=== PATIENT | male | born 1955 | race Hispanic/Latino ===

== ENCOUNTER 2016-06-16 15:36 | Emergency (ER) | payer MEDICARE ==
[2016-06-16 17:09] LABS: BUN/Creatinine Ratio 13.07; Calcium 9.1 mg/dL (8.4-10.2); Chloride 101.9 mmol/L (98-107); Potassium 3.7 mmol/L (3.6-5.0)
[2016-06-16 17:29] LABS: Basophils % (Auto) 0.8 % (0.0-1.8); Eosinophils % (Auto) 2.6 % (0.0-4.3); Hemoglobin 13.2 gm/dl (11.8-15.2); Mean Corpuscular HGB Conc 34 % (32-34); Mean Corpuscular Hemoglobin 30 pg (28-32); Mean Corpuscular Volume 89 fl (84-94); Platelet Count 180 K/mm3 (140-440); Red Cell Distribution Width 13.3 % (13.2-15.2)
--- NOTE | 2016-06-16 21:39 | Emergency Department Report ---
HPI - General Chief Complaint: Altered Mental Status Time Seen by Provider: 06/16/16 21:25 - HPI HPI: Room 5 The patient is a 60-year-old male presenting with a chief complaint of schizophrenia. When asked what made him come to the emergency department patient states "some nurse" the lives [place] an apartment complex told him he needed to come. The patient states he wanted to go to review was to "get some rest." The patient admits to suicidal ideation for one year with is less thought of suicidal ideation occurred approximately 1 month ago. Patient denies suicidal ideation currently. Patient admits to auditory hallucinations stating he has voices "same stuff to me." The patient states he is unable to make out what the voices are saying. The patient admits to visual hallucinations stating he is seen "faces." Patient denies homicidal ideation. 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) Hx Psychiatric Treatment: Yes (schizophrenia) - Surgical History Past Surgical History?: No - Family History Family history: no significant - Social History Smoking Status: Current Every Day Smoker (one pack per day) Substance Use Type: None (denies illicit drug use), Alcohol (occasional) - Medications Home Medications: Home Medications Medication Instructions Recorded Confirmed Last Taken Type Aspirin [Aspirin TAB] 325 mg PO QDAY #30 tablet 01/01/16 01/06/16 Unknown Rx Pravastatin Sodium [Pravastatin] 10 mg PO QHS #30 tablet 01/01/16 01/06/16 Unknown Rx hydrALAZINE [Apresoline TAB] 25 mg PO BID #60 tablet 01/01/16 01/06/16 Unknown Rx Benztropine [Cogentin] 0.5 mg PO QHS #30 tablet 01/10/16 Unknown Rx risperiDONE [RisperDAL] 1 mg PO QHS #30 tablet 01/10/16 Unknown Rx ED Review of Systems ROS: Stated complaint: ALTERED MENTAL STATUS Other details as noted in HPI Comment: All other systems reviewed and negative Constitutional: malaise. denies: chills, fever Eyes: denies: eye pain, eye discharge, vision change ENT: denies: ear pain, throat pain Respiratory: denies: cough, shortness of breath, wheezing Cardiovascular: denies: chest pain, palpitations Endocrine: no symptoms reported Gastrointestinal: denies: abdominal pain, nausea, diarrhea Genitourinary: denies: urgency, dysuria Musculoskeletal: denies: back pain, joint swelling, arthralgia Skin: denies: rash, lesions Neurological: denies: headache, weakness, paresthesias Psychiatric: auditory hallucinations, visual hallucinations, suicidal thoughts. denies: homicidal thoughts Hematological/Lymphatic: denies: easy bleeding, easy bruising Physical Exam - Physical Exam Vital Signs: Vital Signs 06/16/16 15:44 Temperature 98 F Pulse Rate 94 H Respiratory 20 Rate Blood Pressure 201/117 O2 Sat by Pulse 96 Oximetry Physical Exam: GENERAL: The patient is well-developed well-nourished male lying on stretcher not appear to be in acute distress. [] HEENT: Normocephalic. Atraumatic. Extraocular motions are intact. Patient has moist mucous membranes. NECK: Supple. Trachea midline CHEST/LUNGS: Clear to auscultation. There is no respiratory distress noted. HEART/CARDIOVASCULAR: Regular. There is no tachycardia. There is no gallop rub or murmur. ABDOMEN: Abdomen is soft, nontender. Patient has normal bowel sounds. There is no abdominal distention. SKIN: There is no rash. There is no edema. There is no diaphoresis. NEURO: The patient is awake, alert, and oriented. The patient is cooperative. Residual right-sided weakness. The patient has normal speech and gait. MUSCULOSKELETAL: There is no evidence of acute injury. ED Course Vital Signs 06/16/16 15:44 Temperature 98 F Pulse Rate 94 H Respiratory 20 Rate Blood Pressure 201/117 O2 Sat by Pulse 96 Oximetry - Consultations Consultation #1: 06/16/16 22:39 Case discussed with mental health internal control consultant. Will have psychiatrists evaluated patient in the morning will obtain social work consult regarding patient's homelessness as well ED Medical Decision Making - Lab Data Result diagrams: 06/16/16 16:39 06/16/16 16:39 Laboratory Tests 06/16/16 06/16/16 06/16/16 16:39 16:39 16:39 WBC 7.0 RBC 4.40 Hgb 13.2 Hct 39.0 MCV 89 MCH 30 MCHC 34 RDW 13.3 Plt Count 180 Lymph % (Auto) 27.4 [place] % (Auto) 9.8 H Eos % (Auto) 2.6 Baso % (Auto) 0.8 Lymph # 1.9 [place] # 0.7 Eos # 0.2 Baso # 0.1 Seg Neutrophils % 59.4 Seg Neutrophils # 4.1 Sodium 141 Potassium 3.7 Chloride 101.9 Carbon Dioxide 27 Anion Gap 16 BUN 17 Creatinine 1.3 Estimated GFR 57 BUN/Creatinine Ratio 13.07 Glucose 120 H Calcium 9.1 Urine Color Urine Turbidity Urine pH Ur Specific [place] Urine Protein Urine Glucose (UA) Urine Ketones Urine Blood Urine Nitrite Urine Bilirubin Urine Urobilinogen Ur Leukocyte Esterase Urine WBC (Auto) Urine RBC (Auto) Urine Mucus Urine Opiates Screen Urine Methadone Screen Ur Barbiturates Screen Ur Phencyclidine Scrn Ur Amphetamines Screen U Benzodiazepines Scrn Urine Cocaine Screen U Marijuana (THC) Screen Drugs of Abuse Note Plasma/Serum Alcohol < 0.01 06/16/16 06/16/16 21:48 21:48 WBC RBC Hgb Hct MCV MCH MCHC RDW Plt Count Lymph % (Auto) [place] % (Auto) Eos % (Auto) Baso % (Auto) Lymph # [place] # Eos # Baso # Seg Neutrophils % Seg Neutrophils # Sodium Potassium Chloride Carbon Dioxide Anion Gap BUN Creatinine Estimated GFR BUN/Creatinine Ratio Glucose Calcium Urine Color Yellow Urine Turbidity Clear Urine pH 6.0 Ur Specific [place] 1.023 Urine Protein <15 mg/dl Urine Glucose (UA) Neg Urine Ketones Neg Urine Blood Neg Urine Nitrite Neg Urine Bilirubin Neg Urine Urobilinogen 2.0 Ur Leukocyte Esterase Neg Urine WBC (Auto) < 1.0 Urine RBC (Auto) 2.0 Urine Mucus Few Urine Opiates Screen Presumptive negative Urine Methadone Screen Presumptive negative Ur Barbiturates Screen Presumptive negative Ur Phencyclidine Scrn Presumptive negative Ur Amphetamines Screen Presumptive negative U Benzodiazepines Scrn Presumptive negative Urine Cocaine Screen Presumptive negative U Marijuana (THC) Screen Presumptive negative Drugs of Abuse Note Disclamer Plasma/Serum Alcohol - Differential Diagnosis schizophrenia Critical care attestation.: If time is entered above; I have spent that time in minutes in the direct care of this critically ill patient, excluding procedure time. ED Disposition Clinical Impression: Schizophrenia Condition: Stable Referrals: PRIMARY CARE, [Primary Care Provider] - 3-5 Days Time of Disposition: 22:42 (awaiting evaluation by psychiatrist and social work)
[2016-06-16 21:56] LABS: Urine Drugs of Abuse Note Disclamer
[2016-06-16] MEDS ORDERED: CATAPRES PO ONE (22:13)
[2016-06-16 22:17] LABS: Bilirubin,Urine NEG (Negative); Blood,Urine NEG (Negative); Ketones,Urine NEG (Negative); Leukocyte Esterase,Urine NEG (Negative); Mucus,Urine FEW /HPF; Nitrite,Urine NEG (Negative); Protein,Urine <15 mg/dL mg/dL (Negative); WBC,Urine < 1.0 /HPF (0.0-6.0)
--- NOTE | 2016-06-17 09:50 | Consultation ---
History of Present Illness - Reason for Consult Consult date: 06/17/16 Reason for consult: Mental Health Eval Requesting physician: ASHLEIGH CORRAL - Chief Complaint Chief complaint: "I haven't taken m y medications" - History of Present Psychiatric Illness The patient is a 60-year-old male presenting with a chief complaint of schizophrenia. Upon arrival to patient's room, he was sleeping. Patient was easy to arouse to start interview. He was disorganzied with delayed responses. He could not tell me his location or the city. He did know that [place] is the president. He could tell me the month of his bday, but could not tell me the year. Patient stated that he is homeless at this time. Patient acknowledge hearing voices telling him to hurt someone (with no plan), but he don't know who that someone is at this time. He stated that he had SI's weeks ago, but deny them now along AH's. He could not tell me how many hours of sleep got last night or elaborate on his appetite. Patient stated that he has taken Cogentin and Risperdal in the past. He was wondering if inpatient services will be an option for him. Medications and Allergies Allergies Allergy/AdvReac Type Severity Reaction Status Date / Time No Known Allergies Allergy Unverified 03/08/13 18:17 Home Medications Medication Instructions Recorded Confirmed Last Taken Type Aspirin [Aspirin TAB] 325 mg PO QDAY #30 tablet 01/01/16 01/06/16 Unknown Rx Pravastatin Sodium [Pravastatin] 10 mg PO QHS #30 tablet 01/01/16 01/06/16 Unknown Rx hydrALAZINE [Apresoline TAB] 25 mg PO BID #60 tablet 01/01/16 01/06/16 Unknown Rx Benztropine [Cogentin] 0.5 mg PO QHS #30 tablet 01/10/16 Unknown Rx risperiDONE [RisperDAL] 1 mg PO QHS #30 tablet 01/10/16 Unknown Rx Past psychiatric history - Past Medical History Past Medical History: other (Right sided weakness) Past Surgical History: No surgical history - past Psychiatric treatment and history Psych: Schizophrenia psychiatric treatment history: "[facility] 6 months ago" - Social History Social history: single, smoking (occasionally drinks) Mental Status Exam - Vital signs Last Vital Signs Temp 97.5 F L 06/17/16 07:31 Pulse 55 L 06/17/16 07:31 Resp 16 06/17/16 07:31 BP 145/77 06/17/16 07:31 Pulse Ox 96 06/17/16 07:31 - Exam Orientation: person Affect: flat Mood: other ("I have no idea") Thought content: delusions Thought Process: Circumstantial Perceptions: auditory Speech: slow Concentration: distractible Motor activity: normal Level of consciousness: other (Delayed Responses) Memory: Recent Impaired, Remote Impaired Sleep Symptoms: None (unable to assess) Interaction: cooperative, pleasant Results Result Diagrams: 06/16/16 16:39 06/16/16 16:39 Abnormal lab results 06/16/16 06/16/16 Range/Units 16:39 16:39 [place] % (Auto) 9.8 H (0.0-7.3) % Glucose 120 H (75-100) mg/dL All other labs normal. Assessment and Plan Assessment and plan: Impression: Schizophrenia with active psychosis. Patient been off his psychiatric medications for one year and present currently with delayed responses. He states he hear voices, "The voices tell me to hurt someone." He cannot explain who that someone is. He denies SI or VH's at this time. Recommendation: Initiate 1013 with 1:1 observation and transfer to inpatient psychiatry services. Continue to orient the patient to his surroundings.
[2016-06-18 08:54] VITALS: BP 168/88
== END 2016-06-18 08:46 | disposition home or self-care (01) ==
LOC: ED 15:36
DX: F20.9 Schizophrenia, unspecified (principal); I10 Essential (primary) hypertension; F17.200 Nicotine dependence, unspecified, uncomplicated; Z86.73 Personal history of transient ischemic attack (TIA), and cerebral infarction without residual deficits
CPT/HCPCS: 36415; 80048; 80307; 81001; 85025; 99285; G0480; 80320

== ENCOUNTER 2020-06-06 14:10 | Outpatient (CLI) | payer MEDICARE ==
[2020-06-06] MEDS ORDERED: LIDOCAINE (4%) 40 MG/ML TOPICAL SOLN 50 ML BOTTLE TP ONE (14:22)
== END 2020-06-06 14:11 | disposition home or self-care (01) ==
LOC: WOUND 14:10
PROVIDERS: ATTEND Surgery
DX: R21 Rash and other nonspecific skin eruption (principal); S71.002A Unspecified open wound, left hip, initial encounter; R26.89 Other abnormalities of gait and mobility; F20.89 Other schizophrenia; F20.9 Schizophrenia, unspecified; Z79.82 Long term (current) use of aspirin; Z86.73 Personal history of transient ischemic attack (TIA), and cerebral infarction without residual deficits; X58.XXXA Exposure to other specified factors, initial encounter; Y93.89 Activity, other specified; Y92.89 Other specified places as the place of occurrence of the external cause; Y99.8 Other external cause status
CPT/HCPCS: 99205; 99215; G0463

== ENCOUNTER 2020-12-12 10:03 | Outpatient (CLI) | payer MEDICARE ==
[2020-12-12] MEDS ORDERED: LIDOCAINE (4%) 40 MG/ML TOPICAL SOLN 50 ML BOTTLE TP ONE (13:56)
== END 2020-12-12 10:04 | disposition home or self-care (01) ==
LOC: WOUND 10:03
PROVIDERS: ATTEND Surgery
DX: L40.9 Psoriasis, unspecified (principal); S71.002D Unspecified open wound, left hip, subsequent encounter; R26.89 Other abnormalities of gait and mobility; F20.9 Schizophrenia, unspecified; Z79.82 Long term (current) use of aspirin; Z86.73 Personal history of transient ischemic attack (TIA), and cerebral infarction without residual deficits; Z79.899 Other long term (current) drug therapy; Z87.891 Personal history of nicotine dependence; X58.XXXD Exposure to other specified factors, subsequent encounter
CPT/HCPCS: 17250; G0463; 99204; 99214

== ENCOUNTER 2020-12-26 11:05 | Outpatient (CLI) | payer MEDICARE ==
[2020-12-26] MEDS ORDERED: SILVER NITRATE APPLICATOR 1 EA TP ONE (12:16)
[2020-12-26] MEDS ORDERED: LIDOCAINE (4%) 40 MG/ML TOPICAL SOLN 50 ML BOTTLE TP ONE (12:16)
== END 2020-12-26 11:06 | disposition home or self-care (01) ==
LOC: WOUND 11:05
PROVIDERS: ATTEND Surgery
DX: L40.9 Psoriasis, unspecified (principal); S71.002D Unspecified open wound, left hip, subsequent encounter; R26.89 Other abnormalities of gait and mobility; F20.9 Schizophrenia, unspecified; Z79.82 Long term (current) use of aspirin; Z86.73 Personal history of transient ischemic attack (TIA), and cerebral infarction without residual deficits; Z79.899 Other long term (current) drug therapy; Z87.891 Personal history of nicotine dependence; X58.XXXD Exposure to other specified factors, subsequent encounter
CPT/HCPCS: 17250; G0463; 99213

== ENCOUNTER 2021-01-30 11:15 | Outpatient (CLI) | payer MEDICARE ==
[2021-01-30] MEDS ORDERED: LIDOCAINE (4%) 40 MG/ML TOPICAL SOLN 50 ML BOTTLE TP ONE (11:45)
[2021-01-30] MEDS ORDERED: SILVER NITRATE APPLICATOR 1 EA TP ONE (12:00)
== END 2021-01-30 11:16 | disposition home or self-care (01) ==
LOC: WOUND 11:15
PROVIDERS: ATTEND Surgery
DX: L40.9 Psoriasis, unspecified (principal); S71.002D Unspecified open wound, left hip, subsequent encounter; R26.89 Other abnormalities of gait and mobility; F20.9 Schizophrenia, unspecified; Z79.82 Long term (current) use of aspirin; Z86.73 Personal history of transient ischemic attack (TIA), and cerebral infarction without residual deficits; Z79.899 Other long term (current) drug therapy; Z87.891 Personal history of nicotine dependence; X58.XXXD Exposure to other specified factors, subsequent encounter
CPT/HCPCS: 17250; G0463; 99212

== ENCOUNTER 2021-02-13 11:07 | Outpatient (CLI) | payer MEDICARE ==
[2021-02-13] MEDS ORDERED: SILVER NITRATE APPLICATOR 1 EA TP ONE (13:00)
== END 2021-02-13 11:08 | disposition home or self-care (01) ==
LOC: WOUND 11:07
PROVIDERS: ATTEND Surgery
DX: L40.9 Psoriasis, unspecified (principal); S71.002D Unspecified open wound, left hip, subsequent encounter; R26.89 Other abnormalities of gait and mobility; F20.9 Schizophrenia, unspecified; Z79.82 Long term (current) use of aspirin; Z86.73 Personal history of transient ischemic attack (TIA), and cerebral infarction without residual deficits; Z79.899 Other long term (current) drug therapy; Z87.891 Personal history of nicotine dependence; X58.XXXD Exposure to other specified factors, subsequent encounter
CPT/HCPCS: 17250; G0463; 99213